=== PATIENT | female | born 1985 | race Caucasian/White ===

== ENCOUNTER 2020-12-27 10:50 | Emergency (ER) | payer OTHER ==
[~2020-12-27] VITALS: Wt 67.6 kg
[~2020-12-27 10:50] MED LIST: KENALOG0.0251 TP
[2020-12-27] MEDS ORDERED: CYCLOBENZAPRINE10 MG PO (12:48)
[2020-12-27] MEDS ORDERED: NAPROSYN500 MG PO ×2 (12:48→12:59)
[2020-12-27] MEDS ORDERED: TYLENOL325 M1 PO ×2 (12:48→12:59)
== END 2020-12-27 13:24 | disposition home or self-care (01) ==
LOC: ED 10:50
DX: M50.322 Other cervical disc degeneration at C5-C6 level (principal); M54.6 Pain in thoracic spine; Z87.891 Personal history of nicotine dependence